=== PATIENT | female | born 1980 | race Hispanic/Latino ===

== ENCOUNTER 2017-09-10 08:48 | Outpatient (CLI) | payer MEDICARE ==
--- NOTE | 2017-09-10 09:48 | XRay Report ---
XRAY RIGHT KNEE 4 THREE VIEWS: 09/10/17 08:48:00 CLINICAL: Right knee pain. FINDINGS: Obese body habitus. Medial joint space narrowing with small osteophytes. Slight widening of the lateral joint space with small osteophytes. Mild osteopenia. No fracture or dislocation. Mild patellofemoral joint osteoarthritis. No joint effusion.Normal soft tissues. IMPRESSION: Moderate osteoarthritis involving medial, lateral and patellofemoral joints.
== END 2017-09-10 08:49 | disposition home or self-care (01) ==
LOC: SPVIMAG 08:48
PROVIDERS: ATTEND Orthopaedic Surgery
DX: M17.11 Unilateral primary osteoarthritis, right knee (principal)

== ENCOUNTER 2017-10-08 09:15 | Outpatient (CLI) | payer MEDICARE ==
--- NOTE | 2017-10-08 16:44 | XRay Report ---
XRAY RIGHT KNEE THREE VIEWS: 10/08/17 CLINICAL: Nondisplaced fracture of the right fibula. COMPARISON: 09/10/17 FINDINGS: A minimally displaced comminuted fracture of the proximal fibula is more prominent than on the previous exam. No apparent callus. Moderate osteoarthritis of the medial, lateral and patellofemoral joints. No joint effusion.No joint effusion.Normal soft tissues. IMPRESSION: A minimally displaced traumatic comminuted fracture of the proximal fibula with little change compared to the prior exam. Moderate osteoarthritis.
== END 2017-10-08 09:16 | disposition home or self-care (01) ==
LOC: SPVIMAG 09:15
PROVIDERS: ATTEND Orthopaedic Surgery
DX: S82.401D Unspecified fracture of shaft of right fibula, subsequent encounter for closed fracture with routine healing (principal); M17.11 Unilateral primary osteoarthritis, right knee; X58.XXXD Exposure to other specified factors, subsequent encounter; I11.0 Hypertensive heart disease with heart failure; I50.9 Heart failure, unspecified; J45.909 Unspecified asthma, uncomplicated; F17.200 Nicotine dependence, unspecified, uncomplicated

== ENCOUNTER 2019-05-28 13:59 | Emergency (ER) | payer MEDICARE ==
--- NOTE | 2019-05-28 14:23 | Event Note ---
ED Screening Note Date of service: 05/28/19 Time: 14:21 ED Screening Note: This is a 39 y.o. F. that presents to the ER with abdominal pain and diarrhea for 1 week. Current smoker This initial assessment/diagnostic orders/clinical plan/treatment(s) is/are subject to change based on patients health status, clinical progression and re- assessment by fellow clinical providers in the ED. Further treatment and workup at subsequent clinical providers discretion. Patient/guardian urged not to elope from the ED as their condition may be serious if not clinically assessed and managed. Initial orders include: Labs and CT of abdomen
[2019-05-28] MEDS ORDERED: TORADOL IV ONE (15:22)
[2019-05-28 15:33] LABS: Alanine Aminotransferase 27 units/L (7-56); Albumin 4.2 g/dL (3.9-5); BUN/Creatinine Ratio 14; Basophils # (Auto) 0.1 K/mm3 (0.0-0.1); Basophils % (Auto) 1.3 % (0.0-1.8); Blood Urea Nitrogen 10 mg/dL (7-17); Calcium 9.2 mg/dL (8.4-10.2); Eosinophils # (Auto) 0.2 K/mm3 (0.0-0.4); Eosinophils % (Auto) 1.7 % (0.0-4.3); Hematocrit 37.7 % (30.3-42.9); Hemoglobin 11.9 gm/dl (10.1-14.3); Hemolysis Index 76; Lymphocytes # (Auto) 3.6 K/mm3 (1.2-5.4); Lymphocytes % (Auto) 37.3 % (13.4-35.0); Mean Corpuscular HGB Conc 32 % (30-34); Mean Corpuscular Volume 75 fl (79-97); Monocytes # (Auto) 0.5 K/mm3 (0.0-0.8); Monocytes % (Auto) 5.2 % (0.0-7.3); Red Blood Count 5.04 M/mm3 (3.65-5.03); Red Cell Distribution Width 19.2 % (13.2-15.2)
[2019-05-28 15:38] LABS: Platelet Count 216 K/mm3 (140-440)
[2019-05-28 16:13] LABS: Bilirubin,Urine NEG (Negative); Blood,Urine NEG (Negative); Color,Urine Yellow (Yellow); Mucus,Urine 2+ /HPF; Urobilinogen,Urine < 2.0 mg/dL (<2.0)
--- NOTE | 2019-05-28 18:55 | Emergency Department Report ---
<FLOWER CHEN - Last Filed: 05/28/19 18:51> ED Abdominal Pain HPI - General Chief Complaint: Abdominal Pain Stated Complaint: ABD PAIN Time Seen by Provider: 05/28/19 14:20 Source: patient Mode of arrival: Wheelchair Limitations: No Limitations - History of Present Illness Initial Comments: 39-year-old obese female with past medical history of asthma, CHF, diabetes, hypertension, migraines, lupus, sleep apnea, presents to emergency department complaining of a few a fluctuated history of episodic lower abdominal and pelvic pain. Patient states that she has known she has had a issue in her pelvic area. She thinks it's a hard mass or ball which she has been trying to get evaluated. He has not been able to do social presents with a rigid department for evaluation of the area. She states that she called Dr. wright to come here. She states she has not had any vaginal discharge or vaginal bleeding. No hematuria or dysuria but does have some episodes of diarrhea. Vomiting. She reports no fever, chills, sweats, chest pain or palpitations. Does report having abdominal hernia, but she states he has not yet repair, hernia despite home weight loss. She is also been having some issues with head aches off and on. She has had evaluated at a few facilities last at [place]. She was advised of having Jones's palsy. 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 She denies any loss of vision, loss of speech, any weakness. Headache, or change in her headache character. She reports no trauma MD Complaint: abdominal pain Location: suprapubic Radiation: none Migration to: no migration Severity scale (0 -10): 0 Consistency: intermittent Improves With: nothing Worsens With: nothing Associated Symptoms: diarrhea - Related Data Home Medications Medication Instructions Recorded Confirmed Last Taken Lisinopril [Zestril] 20 mg PO BID 06/26/13 12/14/13 06/25/13 metFORMIN [Glucophage] 1,000 mg PO BID 06/26/13 12/14/13 06/25/13 Glipizide/Metformin HCl 2.5 mg PO DAILY 12/14/13 12/14/13 Unknown [Glipizide-Metformin 2.5-250 mg] Previous Rx's Medication Instructions Recorded Last Taken Type FLUoxetine [Prozac] 20 mg PO QDAY #30 capsule 06/26/13 Unknown Rx HYDROcodone/APAP 5-325 [[facility] 1 each PO Q8HR PRN #20 tablet 12/14/13 Unknown Rx 5/325 mg] Omeprazole [Prilosec] 40 mg PO DAILY #30 capsule. 12/14/13 Unknown Rx Promethazine [Phenergan] 25 mg PO Q6H PRN #30 tablet 12/14/13 Unknown Rx traMADol [Ultram] 50 mg PO Q6HR PRN #20 tablet 10/14/15 Unknown Rx HYDROcodone/APAP 5-325 [[facility] 1 each PO Q6HR PRN #20 tablet 08/17/17 Unknown Rx 5/325] Hyoscyamine Subl [Levsin Sl] 0.125 mg SL Q4HR PRN #16 tablet 05/28/19 Unknown Rx Insulin Aspart Protam & Aspart 15 unit SQ TID #3 ml 05/28/19 Unknown Rx [NovoLOG Mix 70-30 Flexpen] Ketorolac [Toradol] 10 mg PO Q6H PRN #15 tablet 05/28/19 Unknown Rx Allergies Allergy/AdvReac Type Severity Reaction Status Date / Time No Known Allergies Allergy Verified 08/17/17 03:54 ED Review of Systems Comment: All other systems reviewed and negative ED Past Medical Hx - Past Medical History Previous Medical History?: Yes Hx Hypertension: Yes Hx Congestive Heart Failure: Yes Hx Diabetes: Yes Hx GERD: Yes Hx Liver Disease: Yes Hx Renal Disease: Yes (kidney stones) Hx Arthritis: Yes Hx Headaches / Migraines: Yes Hx Psychiatric Treatment: Yes Hx Asthma: Yes Additional medical history: lupus, muscular issues, autoimmune disease, sleep apnea. Nerve issues - Surgical History Past Surgical History?: Yes Additional Surgical History: D&C. I&D - Social History Smoking Status: Current Every Day Smoker Substance Use Type: None - Medications Home Medications: Home Medications Medication Instructions Recorded Confirmed Last Taken Type FLUoxetine [Prozac] 20 mg PO QDAY #30 capsule 06/26/13 12/14/13 Unknown Rx Lisinopril [Zestril] 20 mg PO BID 06/26/13 12/14/13 06/25/13 History metFORMIN [Glucophage] 1,000 mg PO BID 06/26/13 12/14/13 06/25/13 History Glipizide/Metformin HCl 2.5 mg PO DAILY 12/14/13 12/14/13 Unknown History [Glipizide-Metformin 2.5-250 mg] HYDROcodone/APAP 5-325 [[facility] 1 each PO Q8HR PRN #20 tablet 12/14/13 Unknown Rx 5/325 mg] Omeprazole [Prilosec] 40 mg PO DAILY #30 capsule. 12/14/13 Unknown Rx Promethazine [Phenergan] 25 mg PO Q6H PRN #30 tablet 12/14/13 Unknown Rx traMADol [Ultram] 50 mg PO Q6HR PRN #20 tablet 10/14/15 Unknown Rx HYDROcodone/APAP 5-325 [[facility] 1 each PO Q6HR PRN #20 tablet 08/17/17 Unknown Rx 5/325] Hyoscyamine Subl [Levsin Sl] 0.125 mg SL Q4HR PRN #16 tablet 05/28/19 Unknown Rx Insulin Aspart Protam & Aspart 15 unit SQ TID #3 ml 05/28/19 Unknown Rx [NovoLOG Mix 70-30 Flexpen] Ketorolac [Toradol] 10 mg PO Q6H PRN #15 tablet 05/28/19 Unknown Rx ED Physical Exam - General Limitations: No Limitations General appearance: alert, in no apparent distress - Head Head exam: Present: atraumatic, normocephalic - Eye Eye exam: Present: normal appearance - ENT ENT exam: Present: mucous membranes moist - Neck Neck exam: Present: normal inspection - Respiratory Respiratory exam: Present: normal lung sounds bilaterally. Absent: respiratory distress - Cardiovascular Cardiovascular Exam: Present: regular rate, normal rhythm. Absent: systolic murmur, diastolic murmur, rubs, gallop - GI/Abdominal GI/Abdominal exam: Present: soft, normal bowel sounds - Extremities Exam Extremities exam: Present: normal inspection - Back Exam Back exam: Present: normal inspection - Neurological Exam Neurological exam: Present: alert, oriented X3 - Psychiatric Psychiatric exam: Present: normal affect, normal mood - Skin Skin exam: Present: warm, dry, intact, normal color. Absent: rash ED Medical Decision Making - Lab Data Result diagrams: 05/28/19 14:58 05/28/19 14:58 ED Disposition Clinical Impression: Lower abdominal pain, Pelvic pain Disposition: DC-01 TO HOME OR SELFCARE Condition: Stable Instructions: Chronic Pelvic Pain in Women (ED), Abdominal Pain (ED) Additional Instructions: Take medication as prescribed as needed. Drink plenty of fluids. Follow up with a GI doctor and INDUSTRIAL PSYCHOLOGIST in the next 2-3 days for further evaluation. Return to the emergency room for any new or worsening symptoms. Prescriptions: Hyoscyamine Subl [Levsin Sl] 0.125 mg SL Q4HR PRN #16 tablet PRN Reason: Spasms Insulin Aspart Protam & Aspart [NovoLOG Mix 70-30 Flexpen] 15 unit SQ TID #3 ml Ketorolac [Toradol] 10 mg PO Q6H PRN #15 tablet PRN Reason: Pain Referrals: [facility] [Provider Group] - 2-3 Days [facility] [Provider Group] - 2-3 Days Print Language: SPANISH <KRISSY LAU - Last Filed: 05/28/19 23:26> ED Review of Systems ROS: Stated complaint: ABD PAIN Other details as noted in HPI ED Course Vital Signs 05/28/19 05/28/19 05/28/19 14:22 15:27 21:20 Temperature 97.9 F 97.8 F Pulse Rate 66 65 Respiratory 20 18 18 Rate Blood Pressure 159/66 Blood Pressure 152/66 [Right] O2 Sat by Pulse 98 100 Oximetry ED Medical Decision Making - Lab Data Result diagrams: 05/28/19 14:58 05/28/19 14:58 Lab Results 05/28/19 05/28/19 05/28/19 Range/Units 14:58 14:58 14:58 WBC 9.6 (4.5-11.0) K/mm3 RBC 5.04 H (3.65-5.03) M/mm3 Hgb 11.9 (10.1-14.3) gm/dl Hct 37.7 (30.3-42.9) % MCV 75 L (79-97) fl MCH 24 L (28-32) pg MCHC 32 (30-34) % RDW 19.2 H (13.2-15.2) % Plt Count 216 (140-440) K/mm3 Lymph % (Auto) 37.3 H (13.4-35.0) % Har[place] % (Auto) 5.2 (0.0-7.3) % Eos % (Auto) 1.7 (0.0-4.3) % Baso % (Auto) 1.3 (0.0-1.8) % Lymph # 3.6 (1.2-5.4) K/mm3 Harlan # 0.5 (0.0-0.8) K/mm3 Eos # 0.2 (0.0-0.4) K/mm3 Baso # 0.1 (0.0-0.1) K/mm3 Seg Neutrophils % 54.5 (40.0-70.0) % Seg Neutrophils # 5.3 (1.8-7.7) K/mm3 Sodium 140 (137-145) mmol/L Potassium 4.1 (3.6-5.0) mmol/L Chloride 104.3 (98-107) mmol/L Carbon Dioxide 21 L (22-30) mmol/L Anion Gap 19 mmol/L BUN 10 (7-17) mg/dL Creatinine 0.7 (0.7-1.2) mg/dL Estimated GFR > 60 ml/min BUN/Creatinine Ratio 14 % Glucose 158 H (65-100) mg/dL Calcium 9.2 (8.4-10.2) mg/dL Total Bilirubin < 0.20 (0.1-1.2) mg/dL AST 38 (5-40) units/L ALT 27 (7-56) units/L Alkaline Phosphatase 78 (35-129) units/L Total Protein 8.1 (6.3-8.2) g/dL Albumin 4.2 (3.9-5) g/dL Albumin/Globulin Ratio 1.1 % Lipase 24 (13-60) units/L HCG, Qual Negative (Negative) Urine Color (Yellow) Urine Turbidity (Clear) Urine pH (5.0-7.0) Ur Specific [place] (1.003-1.030) Urine Protein (Negative) mg/dL Urine Glucose (UA) (Negative) mg/dL Urine Ketones (Negative) mg/dL Urine Blood (Negative) Urine Nitrite (Negative) Urine Bilirubin (Negative) Urine Urobilinogen (<2.0) mg/dL Ur Leukocyte Esterase (Negative) Urine WBC (Auto) (0.0-6.0) /HPF Urine RBC (Auto) (0.0-6.0) /HPF U Epithel Cells (Auto) (0-13.0) /HPF Urine Mucus /HPF 05/28/19 Range/Units 15:36 WBC (4.5-11.0) K/mm3 RBC (3.65-5.03) M/mm3 Hgb (10.1-14.3) gm/dl Hct (30.3-42.9) % MCV (79-97) fl MCH (28-32) pg MCHC (30-34) % RDW (13.2-15.2) % Plt Count (140-440) K/mm3 Lymph % (Auto) (13.4-35.0) % Harlan % (Auto) (0.0-7.3) % Eos % (Auto) (0.0-4.3) % Baso % (Auto) (0.0-1.8) % Lymph # (1.2-5.4) K/mm3 [place] # (0.0-0.8) K/mm3 Eos # (0.0-0.4) K/mm3 Baso # (0.0-0.1) K/mm3 Seg Neutrophils % (40.0-70.0) % Seg Neutrophils # (1.8-7.7) K/mm3 Sodium (137-145) mmol/L Potassium (3.6-5.0) mmol/L Chloride (98-107) mmol/L Carbon Dioxide (22-30) mmol/L Anion Gap mmol/L BUN (7-17) mg/dL Creatinine (0.7-1.2) mg/dL Estimated GFR ml/min BUN/Creatinine Ratio % Glucose (65-100) mg/dL Calcium (8.4-10.2) mg/dL Total Bilirubin (0.1-1.2) mg/dL AST (5-40) units/L ALT (7-56) units/L Alkaline Phosphatase (35-129) units/L Total Protein (6.3-8.2) g/dL Albumin (3.9-5) g/dL Albumin/Globulin Ratio % Lipase (13-60) units/L HCG, Qual (Negative) Urine Color Yellow (Yellow) Urine Turbidity Slightly-cloudy (Clear) Urine pH 5.0 (5.0-7.0) Ur Specific [place] 1.028 (1.003-1.030) Urine Protein 30 mg/dl (Negative) mg/dL Urine Glucose (UA) Neg (Negative) mg/dL Urine Ketones Neg (Negative) mg/dL Urine Blood Neg (Negative) Urine Nitrite Neg (Negative) Urine Bilirubin Neg (Negative) Urine Urobilinogen < 2.0 (<2.0) mg/dL Ur Leukocyte Esterase Neg (Negative) Urine WBC (Auto) 3.0 (0.0-6.0) /HPF Urine RBC (Auto) 3.0 (0.0-6.0) /HPF U Epithel Cells (Auto) 6.0 (0-13.0) /HPF Urine Mucus 2+ /HPF - Radiology Data Radiology results: report reviewed CT ABDOMEN AND PELVIS WITH CONTRAST INDICATION / CLINICAL INFORMATION: lower abdominal pain. TECHNIQUE: Axial CT images were obtained through the abdomen and pelvis after IV contrast. All CT scans at this location are performed using CT dose reduction for ALARA by means of automated exposure control. COMPARISON: None available. FINDINGS: Image quality is definitely impacted secondary to patient body habitus. LOWER CHEST: No significant abnormality. LIVER: Enlarged and hypoattenuating, suggesting diffuse hepatic steatosis. No focal liver lesion. GALLBLADDER: No significant abnormality. BILE DUCTS: No significant abnormality. PANCREAS: No significant abnormality. SPLEEN: No significant abnormality. ADRENALS: No significant abnormality. RIGHT KIDNEY and URETER: No significant abnormality. LEFT KIDNEY and URETER: No significant abnormality. STOMACH and SMALL BOWEL: No significant abnormality. COLON: No significant abnormality. APPENDIX: Not well seen. No acute inflammatory process is identified in right lower quadrant. PERITONEUM: No free fluid. No free air. No fluid collection. LYMPH NODES: No significant adenopathy. AORTA and ARTERIES: No significant abnormality. IVC and VEINS: No significant abnormality. URINARY BLADDER: Collapsed, limiting evaluation. REPRODUCTIVE ORGANS: No significant abnormality. ADDITIONAL FINDINGS: None. SKELETAL SYSTEM: No significant abnormality. IMPRESSION: 1. No acute abnormality is identified. 2. Hepatomegaly and hepatic steatosis. Signer Name: Darion Quezada MD Signed: 05/28/2019 8:17 PM Workstation Name: [id number] - Medical Decision Making <Entered By FLOWER CHEN - 05/28/19 19:07 > 39-year-old obese female with past medical history of asthma, CHF, diabetes, hypertension, migraines, lupus, sleep apnea, presents to emergency department complaining of a few a fluctuated history of episodic lower abdominal and pelvic pain. Patient states that she has known she has had a issue in her pelvic area. She thinks it's a hard mass or ball which she has been trying to get evaluated. He has not been able to do social presents with a rigid department for evaluation of the area. She states that she called Dr. wright to come here. She states she has not had any vaginal discharge or vaginal bleeding. No hematuria or dysuria but does have some episodes of diarrhea. Vomiting. She reports no fever, chills, sweats, chest pain or palpitations. Does report having abdominal hernia, but she states he has not yet repair, hernia despite home weight loss. She is also been having some issues with headaches off and on. She has had evaluated at a few facilities last at [place]. She was advised of having Jones's palsy. 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 She denies any loss of vision, loss of speech, any weakness. Headache, or change in her headache character. She reports no trauma pt signed out to me, Krissy Lau PA-C pending CT abd pelvis results, which shows no significant abnormality. VSS. labs are stable. UA without evidence of UTI. pt referred to GI and INDUSTRIAL PSYCHOLOGIST for further evaluation of her lower abdominal discomfort and pelvic discomfort. pt given prescriptions written by my colleague for levsin and toradol. discussed with pt to take as prescribed as needed. advised to increase her water intake over the next few days. pt states she just recently changed PCPs and she is going to see Dr. Caicedo later this month. pt asked if I would give her a refill of her novolog 70/30 flexpen. she states she takes 15 units three times a day. pt given one refill. advised that future refills would need to come through Dr. Caicedo. advised pt to Follow up with a GI doctor and INDUSTRIAL PSYCHOLOGIST in the next 2-3 days for further evaluation. Return to the emergency room for any new or worsening symptoms. Critical care attestation.: If time is entered above; I have spent that time in minutes in the direct care of this critically ill patient, excluding procedure time. ED Disposition Is pt being admited?: No Does the pt Need Aspirin: No Time of Disposition: 20:36
--- NOTE | 2019-05-28 20:22 | Cat Scan Report ---
CT ABDOMEN AND PELVIS WITH CONTRAST INDICATION / CLINICAL INFORMATION: lower abdominal pain. TECHNIQUE: Axial CT images were obtained through the abdomen and pelvis after IV contrast. All CT scans at this location are performed using CT dose reduction for ALARA by means of automated exposure control. COMPARISON: None available. FINDINGS: Image quality is definitely impacted secondary to patient body habitus. LOWER CHEST: No significant abnormality. LIVER: Enlarged and hypoattenuating, suggesting diffuse hepatic steatosis. No focal liver lesion. GALLBLADDER: No significant abnormality. BILE DUCTS: No significant abnormality. PANCREAS: No significant abnormality. SPLEEN: No significant abnormality. ADRENALS: No significant abnormality. RIGHT KIDNEY and URETER: No significant abnormality. LEFT KIDNEY and URETER: No significant abnormality. STOMACH and SMALL BOWEL: No significant abnormality. COLON: No significant abnormality. APPENDIX: Not well seen. No acute inflammatory process is identified in right lower quadrant. PERITONEUM: No free fluid. No free air. No fluid collection. LYMPH NODES: No significant adenopathy. AORTA and ARTERIES: No significant abnormality. IVC and VEINS: No significant abnormality. URINARY BLADDER: Collapsed, limiting evaluation. REPRODUCTIVE ORGANS: No significant abnormality. ADDITIONAL FINDINGS: None. SKELETAL SYSTEM: No significant abnormality. IMPRESSION: 1. No acute abnormality is identified. 2. Hepatomegaly and hepatic steatosis. Signer Name: Darion Quezada MD Signed: 05/28/2019 8:17 PM Workstation Name: [id number]
[2019-05-28 21:21] VITALS: BP 152/66
== END 2019-05-28 21:21 | disposition home or self-care (01) ==
LOC: ED 13:59
DX: R10.2 Pelvic and perineal pain (principal); R19.7 Diarrhea, unspecified; I11.0 Hypertensive heart disease with heart failure; I50.9 Heart failure, unspecified; E11.9 Type 2 diabetes mellitus without complications; K21.0 Gastro-esophageal reflux disease with esophagitis; M19.90 Unspecified osteoarthritis, unspecified site; G43.909 Migraine, unspecified, not intractable, without status migrainosus; J45.909 Unspecified asthma, uncomplicated; F17.200 Nicotine dependence, unspecified, uncomplicated; Z98.890 Other specified postprocedural states; Z79.899 Other long term (current) drug therapy; Z79.4 Long term (current) use of insulin
CPT/HCPCS: 36415; 74177; 80053; 81001; 83690; 84703; 85025; 96374; 99284; J1885; Q9967